=== PATIENT | female | born 1960 | race Caucasian/White ===

== ENCOUNTER 2020-10-21 15:59 | Emergency (ER) | payer SELFPAY ==
[~2020-10-21] VITALS: Ht 175.3 cm; Wt 127.0 kg
[2020-10-21] MEDS ORDERED: DECADRON4 M1 PO (17:21)
== END 2020-10-21 17:36 | disposition home or self-care (01) ==
LOC: ER 17:14
DX: U07.1 COVID-19 (principal); J12.82 Pneumonia due to coronavirus disease 2019
CPT/HCPCS: 99282

== ENCOUNTER 2024-06-03 15:27 | Inpatient (IN) | payer OTHER ==
[~2024-06-03] VITALS: Ht 175.3 cm; Wt 127.0 kg
[~2024-06-03 15:27] MED LIST: DECADRON4 M1 PO
[2024-06-03 15:32] VITALS: TEMP 97.4
[2024-06-03 16:03] LABS: BASOPHILS # (AUTO) 0.1 (0.0-0.1); BASOPHILS % 0.9 % (0.0-1.0); EOSINOPHILS # (AUTO) 0.2 (0.0-0.4); EOSINOPHILS % 2.4 % (0.0-6.0); HEMATOCRIT 45.4 % (34.2-44.1); HEMOGLOBIN 14.7 g/dL (12.0-16.0); LYMPHOCYTES # (AUTO) 1.7 (1.0-3.2); LYMPHOCYTES % 27.5 % (18.0-39.1); MEAN CORPUSCULAR HEMOGLOBIN 29.6 pg (28-32); MEAN CORPUSCULAR HGB CONC 32.4 g/dL (31-35); MEAN CORPUSCULAR VOLUME 91.5 fL (81-99); MONOCYTES # (AUTO) 0.7 (0.2-0.8); MONOCYTES % 10.3 % (4.4-11.3); NEUTROPHILS # (AUTO) 3.7 (2.1-6.9); NEUTROPHILS % 58.6 % (38.7-80.0); PLATELET COUNT 247 x10e3/uL (140-360); RED BLOOD COUNT 4.96 x10e6/uL (3.6-5.1); RED CELL DISTRIBUTION WIDTH 12.5 % (11.7-14.4); WHITE BLOOD COUNT 6.32 x10e3/uL (4.8-10.8)
[2024-06-03 16:21] LABS: INR 1.03; PROTHROMBIN TIME 14.1 seconds (11.9-14.5)
[2024-06-03 16:22] LABS: PARTIAL THROMBOPLASTIN TIME 30.3 seconds (23.8-35.5)
[2024-06-03 16:28] LABS: ALBUMIN 3.6 g/dL (3.5-5.0); BILIRUBIN,TOTAL 0.8 mg/dL (0.2-1.2); CALCIUM 8.8 mg/dL (8.4-10.2); CREATININE, SERUM 0.79 mg/dL (0.57-1.11); MAGNESIUM 2.3 MG/DL (1.3-2.1); TOTAL PROTEIN 7.1 g/dL (6.5-8.1)
[2024-06-03] MEDS ORDERED: HEPARIN SOD/DEXTROSE 5% 25000 UNIT/250 ML BAG IV SCH (16:30)
[2024-06-03] MEDS ORDERED: HEPARIN SOD (PORCINE) 5,000 UNIT/ML VIAL IV ONE (16:30)
[2024-06-03 16:34] LABS: TROPONIN I 0.024 ng/mL (0-0.300)
[2024-06-03] MEDS: HEPARIN SOD (PORCINE) 5,000 UNIT/ML VIAL IV ONE (16:41)
[2024-06-03] MEDS: HEPARIN 25,000 UNIT/D5W 250ML 250 ML IV SCH (16:44)
[2024-06-03] MEDS: ASPIRIN 81 MG CHEW TAB PO ONE (16:47)
[2024-06-03 17:09] VITALS: PULSE 70; RESP 16
[2024-06-03] MEDS: CLOPIDOGREL BISULFATE 75 MG TAB PO ONE (17:31)
[2024-06-03] MEDS: CLOPIDOGREL BISULFATE 300 MG TAB-DO NOT STOCK PO ONE (17:31)
[2024-06-03] MEDS ORDERED: ONDANSETRON HCL INJ 2MG/ML 2ML 2 MG/ML VIAL IV PRN (17:45)
[2024-06-03] MEDS ORDERED: Morphine 2mg Syringe 2 MG/ML SYR IV PRN (17:45)
[2024-06-03] MEDS ORDERED: NITROGLYCERIN 0.4 MG SUBL SL PRN (17:45)
[2024-06-03] MEDS: FAMOTIDINE 20 MG/2 ML VIAL IV SCH (18:44)
[2024-06-03] MEDS: SODIUM CHLORIDE 0.9% 1000ML 1,000 ML IV SCH (18:45)
[2024-06-03 20:00] VITALS: BP 120/67; PULSE 64; RESP 18; TEMP 97.9; O2SAT 99
[2024-06-03 21:00] VITALS: BP 120/67; PULSE 64; RESP 18; TEMP 97.9; O2SAT 99
[2024-06-03] MEDS ORDERED: DEXTROSE 50% SYRINGE 50 ML IV PRN (21:30)
[2024-06-03] MEDS ORDERED: JARDIANCE10 MG PO (21:43)
[2024-06-03] MEDS ORDERED: FINASTERIDE5 MG PO (21:43)
[2024-06-03] MEDS ORDERED: ATORVASTATIN CA20 MG PO (21:43)
[2024-06-03] MEDS ORDERED: AMLODIPINE BESYL5 MG PO (21:43)
[2024-06-03] MEDS ORDERED: RYBELSUS14 MG PO (21:43)
[2024-06-04] VITALS (13 sets, daily range): BP systolic 101–140; BP diastolic 59–76; PULSE 70–80; RESP 12–18; TEMP 96.8–99; O2SAT 95–99
[2024-06-04 00:04] LABS: TROPONIN I 0.023 ng/mL (0-0.300)
[2024-06-04 06:26] LABS: BASOPHILS # (AUTO) 0.1 (0.0-0.1); BASOPHILS % 1.2 % (0.0-1.0); EOSINOPHILS # (AUTO) 0.2 (0.0-0.4); EOSINOPHILS % 3.6 % (0.0-6.0); HEMATOCRIT 44.5 % (34.2-44.1); HEMOGLOBIN 14.2 g/dL (12.0-16.0); LYMPHOCYTES # (AUTO) 1.6 (1.0-3.2); MEAN CORPUSCULAR HEMOGLOBIN 29.6 pg (28-32); MEAN CORPUSCULAR HGB CONC 31.9 g/dL (31-35); MEAN CORPUSCULAR VOLUME 92.7 fL (81-99); MONOCYTES # (AUTO) 0.8 (0.2-0.8); MONOCYTES % 12.9 % (4.4-11.3); NEUTROPHILS # (AUTO) 3.2 (2.1-6.9); NEUTROPHILS % 54.8 % (38.7-80.0); PLATELET COUNT 237 x10e3/uL (140-360); RED CELL DISTRIBUTION WIDTH 12.6 % (11.7-14.4); WHITE BLOOD COUNT 5.81 x10e3/uL (4.8-10.8)
[2024-06-04 07:03] LABS: ALBUMIN 3.3 g/dL (3.5-5.0); ANION GAP 12.1 mmol/L (8-16); BILIRUBIN,TOTAL 0.7 mg/dL (0.2-1.2); CALCIUM 8.9 mg/dL (8.4-10.2); CREATININE, SERUM 0.77 mg/dL (0.57-1.11); POTASSIUM 4.1 mmol/L (3.5-5.1); TOTAL PROTEIN 6.6 g/dL (6.5-8.1)
[2024-06-04 07:21] LABS: TROPONIN I 0.02 ng/mL (0-0.300)
[2024-06-04] MEDS: INSULIN LISPRO 100 UNIT/1 ML 3ML VIAL SQ SCH (07:30)
[2024-06-04] MEDS: AMLODIPINE BESYLATE 5 MG TAB PO SCH (08:52)
[2024-06-04] MEDS: CLOPIDOGREL BISULFATE 75 MG TAB PO SCH (08:52)
[2024-06-04] MEDS: ASPIRIN 81 MG ENTERIC COATED PO SCH (08:52)
[2024-06-04] MEDS ORDERED: HEPARIN SOD (PORCINE) 1000 UNIT/ML 30ML ONE (09:48)
[2024-06-04] MEDS ORDERED: VERAPAMIL HCL 2.5 MG/ML 2 ML VIAL ONE (09:48)
[2024-06-04] MEDS ORDERED: MIDAZOLAM HCL 2 MG/2 ML VIAL ONE (09:49)
[2024-06-04] MEDS ORDERED: HEPARIN SOD/SOD CHLORIDE 2,000 ML ONE (09:50)
[2024-06-04] MEDS ORDERED: LIDOCAINE HCL 2% LOCAL 20 ML VIAL ONE (09:50)
[2024-06-04] MEDS ORDERED: NITROGLYCERIN/D5W 200 MCG/ML 250 ML ONE (09:50)
[2024-06-04] MEDS ORDERED: SODIUM CHLORIDE 0.9% 1000ML 1,000 ML ONE (09:50)
[2024-06-04] MEDS ORDERED: FENTANYL CITRATE/PF 100MCG/2 ML INJ ONE (09:50)
[2024-06-04] MEDS ORDERED: IOPAMIDOL 370 MG/ML 100 ML INFUS..BTL INJ ONE (09:51)
[2024-06-04] MEDS ORDERED: ATORVASTATIN 40 MG TAB PO SCH (21:00)
== END 2024-06-04 18:45 | disposition home or self-care (01) | DRG 287 ==
LOC: ER 15:32 → ERHOLD 17:35 → MED/SURG2 18:08
PROVIDERS: ADMIT Family Medicine; ATTEND Family Medicine
PROC: 4A023N7 Measurement of Cardiac Sampling and Pressure, Left Heart, Percutaneous Approach (ICD-10-PCS; principal; 2024-06-04)
PROC: B2111ZZ Fluoroscopy of Multiple Coronary Arteries using Low Osmolar Contrast (ICD-10-PCS; 2024-06-04)
DX: I20.0 Unstable angina (principal); Z68.41 Body mass index [BMI] 40.0-44.9, adult; E66.01 Morbid (severe) obesity due to excess calories; E11.9 Type 2 diabetes mellitus without complications; I10 Essential (primary) hypertension; E78.5 Hyperlipidemia, unspecified; Z79.84 Long term (current) use of oral hypoglycemic drugs; Z90.710 Acquired absence of both cervix and uterus; Z87.891 Personal history of nicotine dependence; Z82.49 Family history of ischemic heart disease and other diseases of the circulatory system
CPT/HCPCS: 36415; 71045; 76937; 80053; 80061; 82550; 82948; 83735; 83880; 84484; 85025; 85610; 85730; 93005; 93458; 99152; 99284; C1887; C1894; J1644; J2003; J2250; J7030; Q9967